=== PATIENT | female | born 1945 | race African-American/Black ===

== ENCOUNTER 2017-02-19 17:00 | Inpatient (IN) | payer MEDICARE ==
--- NOTE | ~2017-02-19 | CN ---
Consultation Report [facility] [address] [place]. [address] NAME: ROJELIO MOSQUERA : 45 STATUS : REG ER PAT#: [id number] AGE: 71 ADM/REG DATE : 02/19/17 MR#: [id number] REPORT SERV DATE: 02/19/17 DICTATED BY: DATE: REPORT STATUS : Draft TRANSCRIBED BY: MODL DATE: 02/19/17 NEUROLOGY CONSULTATION DATE OF CONSULTATION: 02/19/2017 REASON FOR CONSULT: Possible stroke. HISTORY OF PRESENT ILLNESS: This is a 71-year-old female presented to [facility] with the patient noted to have difficulty talking as well as right facial weakness with the patient noted to have transient visual loss that has subsequently resolved. The patient still was noted to have problem talking as well as facial weakness. The patient complained of bilateral lower extremity toe numbness that has been ongoing, otherwise the patient denies any focal weakness or numbness. The patient had similar symptoms in the past, roughly a year ago. Otherwise, denies any recent illness, fever, chills, nausea, vomiting, chest pain, or shortness of breath. Roughly a week ago, the patient's pen ruler operator Dr. Barbosa, discontinued the patient's spironolactone, otherwise no recent changes in medication. The patient denies any recent anticoagulation usage, specifically denies Coumadin, Eliquis, Pradaxa, and Xarelto. PAST MEDICAL HISTORY: Significant for previous Conway's palsy in 1986, diabetes, gout, hypercholesterolemia, edema, diastolic heart failure with chronic kidney disease, obesity, sleep apnea, and fatty liver. ALLERGIES: THE PATIENT REPORTS ALLERGY TO PENICILLIN WELL NONSTEROIDAL ANTI- INFLAMMATORY MEDICATION AND IBUPROFEN. MEDICATIONS: The patient at baseline, takes aspirin. REVIEW OF SYSTEMS: Negative except for those mentioned in the HPI. FAMILY HISTORY: Significant for diabetes. SOCIAL HISTORY: The patient denies tobacco, alcohol, or recreational drug usage. PHYSICAL EXAMINATION: VITAL SIGNS: At the time of evaluation, the patient was noted to have T-max of 97.9, heart rate of 92, respiration of 18, and blood pressure of 143/79. GENERAL: The patient is well developed, well nourished, in no acute distress. CARDIOVASCULAR: Regular rate and rhythm. No carotid bruits were otherwise auscultated. PULMONARY: Clear to auscultation bilaterally. NEUROLOGICAL: Generally, the patient is alert, oriented to person, place, year, and month. The patient is able to follow simple and 2-step commands. No aphasia was otherwise appreciated. Dysarthria was noted. The patient was able to follow simple and 2-step Consultation Report [facility] [address] [place]. [address] NAME: ROJELIO MOSQUERA : 45 STATUS : REG ER PAT#: [id number] AGE: 71 ADM/REG DATE : 02/19/17 MR#: [id number] REPORT SERV DATE: 02/19/17 DICTATED BY: DATE: REPORT STATUS : Draft TRANSCRIBED BY: MODL DATE: 02/19/17 commands. Intact registration, some difficulty with recall. Cranial nerves 2 through 12, pupils equal, round, and reactive to light. Horizontal eye movement was noted to be intact with intact peripheral vision. The patient was noted to have decreased nasolabial fold on the right compared to the left with the patient noted to have roughly equal eye closure bilaterally. The patient otherwise reports symmetrical sensation in bilateral face, midline tongue, normal palatal movement. Apparent normal hearing. The patient demonstrated 5/5 bilateral upper and lower extremity strength with the patient reporting symmetrical sensation bilaterally. Deep tendon reflex was otherwise 2+ throughout. Downgoing toe on bilateral plantar reflexes. Normal yspujw-fy-owju examination without ataxia. Gait was not evaluated secondary to the patient's acute symptoms. LABORATORY STUDIES: Demonstrated white blood cell count of 8.9, hemoglobin of 12.9, hematocrit of 41.9, platelet count of 180. The patient was noted to have CT scan of the brain, demonstrated no acute process. CT angiogram was not obtained secondary to patient's creatinine of 2.0 and mild symptoms. IMPRESSION: Right facial weakness, symptom onset of 1500 hours. Transient visual loss, that has subsequently resolved, but still noted with dysarthria as well as weakness in the right face. NIH stroke scale of 2. tPA was administered after discussion with the family member regarding risks and benefit, the patient's baseline is 1705 hours. We will admit the patient to ICU for stroke workup. Unfortunately, CT angiogram of the head and neck was not obtained secondary to the patient's creatinine of 2.0 and mild symptoms. RECOMMENDATION: 1. ICU admission. 2. MRI of the head without contrast. 3. MRA of the head and neck. 4. Echocardiogram. 5. Lipitor 80 mg p.o. at bedtime. 6. Fasting lipid panel and hemoglobin A1c. 7. PT/OT, speech therapy, evaluation and treatment. [facility]/MODL Efe Avery MD / [id number] CC: Panfilo Bernal M.D.
--- NOTE | ~2017-02-19 | DS ---
Discharge Summary [facility] [address] [place]. [address] NAME: ROJELIO MOSQUERA : 45 STATUS : DIS IN PAT#: [id number] AGE: 71 ADM/REG DATE : 02/19/17 MR#: [id number] REPORT SERV DATE: 02/23/17 DICTATED BY: BRIJESH CASTANO DATE: 02/22/17 REPORT STATUS : Draft TRANSCRIBED BY: MODL DATE: 02/22/17 ADMISSION DATE: 02/19/2017 DISCHARGE DATE: 02/22/2017 FINAL DIAGNOSES: 1. Transient ischemic attack versus cerebrovascular accident, status post tPA. 2. Diabetes. 3. Chronic diastolic congestive heart failure. 4. Sxyu-dj-xiunjpnl mitral regurgitation. 5. Chronic kidney disease 3 to 4. 6. Obesity. DIAGNOSTIC EXAM: Echocardiogram showing left ventricular systolic function intact to 57%, mild left ventricular diastolic dysfunction, right ventricle systolic function intact, mild mitral regurgitation unchanged. CAT scan of the brain showing unremarkable noncontrast head CT. Mild age-appropriate diffuse cerebral involutional changes, no acute intracranial hemorrhage, no acute CVA identified. Chest x-ray, normal chest. MRI of the brain, mild to moderate amount of old deep white matter ischemic change. No acute infarction or bleed. Mild to moderate atrophy present. MRA of the head, normal findings. MRA of the neck. Maximum intensity projection. Image demonstrate no significant stenosis of the carotid arteries. Category 1 by NASCET criteria. Vertebrals are codominant, symmetric, and intact. HOSPITAL COURSE: Please refer to the H and P done by Dr. Martell dated on 02/19/2017. Briefly, this is a 71-year-old female, who comes in for dysphagia, increased right facial weakness, and transient vision loss. The patient has been seen by Neurology in the emergency room and it was deemed that the patient needed tPA. The patient was then admitted to the critical care unit and she did well. The next day, she was back to her baseline and was transferred out to the floor. The patient continued to do well and Neurology signed off. The patient will now be discharged with the above diagnosis. She will be on the following medications. Aspirin 325 mg once a day, Lipitor 80 mg at bedtime, NovoLog 24 units three times a day, Levemir 100 units at bedtime, torsemide 20 mg a day, Micardis 80 mg a day, potassium 20 mEq a day, Norvasc 5 mg a day. The patient will follow up with Dr. Panfilo Bernal in one to two weeks. I would defer to him on the management of her insulin. Her hemoglobin A1c is 7.3 at those doses. However, when she was here, with the erratic food intake, we were only able to keep her sugar well with only 20 units of Levemir, but I would defer this to her PCP, Dr. Bernal. This has been explained to her in front of the . They agreed and understood the plan. Discharge Summary [address] [place]. [address] NAME: ROJELIO MOSQUERA : 45 STATUS : DIS IN PAT#: [id number] AGE: 71 ADM/REG DATE : 02/19/17 MR#: [id number] REPORT SERV DATE: 02/23/17 DICTATED BY: BRIJESH CASTANO DATE: 02/22/17 REPORT STATUS : Draft TRANSCRIBED BY: TREVOR DATE: 02/22/17 TIME SPENT: 35 minutes. DICTATED BY: Freddy Gordon/TREVOR Brijesh Castano M.D. / [id number] CC: DO Panfilo Machado M.D.
--- NOTE | ~2017-02-19 | HP ---
History And Physical [address] [address] NAME: ROJELIO MOSQUERA : 45 STATUS : ADM IN [facility]#: [id number] AGE: 71 ADM/REG DATE : 02/19/17 MR#: [id number] REPORT SERV DATE: 02/19/17 DICTATED BY: LUIS MARTELL DATE: 02/19/17 REPORT STATUS : Draft TRANSCRIBED BY: TREVOR DATE: 02/19/17 DATE OF ADMISSION: 02/19/2017 HISTORY OF PRESENT ILLNESS: This is a 71-year-old, black female, who presents with dysphagia, right facial weakness, and transient vision loss. The patient was brought to the emergency room. She was evaluated by Neurology, Dr. Patricia Avery. She also was noted to have bilateral lower extremity toe numbness. The patient was evaluated and given tPA as per protocol, infusion of tPA completed at 1805 hours. She is currently in the CCU as per post tPA CVA protocol. We are asked to admit her. For this reason, we are asked to admit her. ALLERGIES: SHE IS ALLERGIC TO PENICILLIN, TO WHICH SHE GETS SWELLING AND A RASH. IBUPROFEN, SWELLING AND RASH AND IS ALSO HAVE HAS HAD ISSUES WITH OTHER NONSTEROIDAL ANTIINFLAMMATORY. SHE TOLERATES ASPIRIN WELL. HOME MEDICATION: Aspirin 81 mg daily; subcu insulin 24 units three times a day; Levemir 100 units subcu at bedtime; torsemide dose unknown, she takes one tablet daily; Telmisartan one tablet daily; potassium one tablet daily, dose unknown. PAST MEDICAL HISTORY: 1. Significant for Conway's palsy in 1986. 2. Diabetes mellitus. 3. Gout. 4. Hypercholesterolemia. 5. Edema. 6. Diastolic heart failure. 7. Chronic kidney disease. 8. Obesity. 9. Sleep apnea. 10.Fatty liver. 11.Status post hysterectomy. 12.Previous echocardiogram in 11/2013, showed a normal left ventricular systolic function with an estimated ejection fraction of 65%, mild diastolic dysfunction and mild-to- moderate mitral regurgitation. 13.The patient was evaluated for possible stroke in 12/2013, and was seen by Neurology then, Dr. Morton. It was felt at that time that the patient indeed have had a CVA, likely small vessel. There was no residual deficit. It was felt that the patient did not need to have rehabilitation services. Aspirin was started and Lipitor was increased to 80 mg. She had an echocardiogram at that time to show normal left ventricular systolic function and no change from her previous echocardiogram in 11/2013. She was eventually discharged. She now presents with the above-mentioned complaints. FAMILY HISTORY: Both parents are . Her mom had diabetes mellitus as did her dad. SOCIAL HISTORY: She is . Lives at home with her . She has four daughters. She has a remote history of smoking and smoked less than a pack a day for about 15 years and History And Physical [address] [address] NAME: ROJELIO MOSQUERA : 45 STATUS : ADM IN [facility]#: [id number] AGE: 71 ADM/REG DATE : 02/19/17 MR#: [id number] REPORT SERV DATE: 02/19/17 DICTATED BY: LUIS MARTELL DATE: 02/19/17 REPORT STATUS : Draft TRANSCRIBED BY: TREVOR DATE: 02/19/17 quit over 10 years ago. Has an occasional alcoholic beverage and does not use illicit drugs. REVIEW OF SYSTEMS: The patient denies any difficulties with weight loss, weight gain, diarrhea, constipation, productive cough, nausea, vomiting, fever, or chills. There is a mention that the patient has obstructive sleep apnea, but she herself is not aware of this. So, this part of her history is not entirely certain. She has chronic lower extremity edema and takes Demadex for that. The remainder of a 12-point review of systems is unremarkable. PHYSICAL EXAMINATION: GENERAL: The patient is alert, awake, and oriented. She is in no distress. VITAL SIGNS: Her heart rate is 84, blood pressure is 172/81, O2 saturation on room air is 97%. Her respiratory rate is 20, temperature is 98.4. The patient is alert and awake, following commands, still has residual right facial droop but some of this may be chronic secondary to her history of Conway's palsy. She otherwise is able to speak and feels that she is better. She denies any weakness in any of her extremities. SKIN: Warm and dry. HEENT: Head is atraumatic and normocephalic. Pupils are sluggishly reactive. Sclerae anicteric. Conjunctivae are pink. Nasal mucosa is within normal limits. Oral mucosa is moist. Tongue is midline. NECK: Supple without JVD, lymphadenopathy, or thyromegaly. LUNG: Without wheezing, diminished at the bases. CARDIAC: Reveals a regular rate and rhythm with no significant murmurs heard. BREASTS: Symmetrical without masses. ABDOMEN: Obese, nondistended. Bowel sounds are present. There is no organosplenomegaly appreciated. RECTAL/GENITAL: Deferred. EXTREMITIES: Without cyanosis, clubbing, but there is bilateral lower extremity edema. The patient apparently had taken her Demadex this morning. NEUROLOGIC: With the exception of the right facial droop is nonfocal. IMAGING: EKG showed sinus rhythm with 1st degree AV block. Head scan was done without contrast because of the patient's creatinine being 1.99, white cell count is 8.9, hemoglobin 12, hematocrit 41, platelet count is an 181,000. No left shift. PTT and PT/INR within normal limits. Sodium is 146, potassium is 3.7, chloride is 110, bicarb is 30, BUN is 31, creatinine 1.99, glucose 63, troponin is less than 0.02. LFTs are within normal limits. ASSESSMENT AND PLAN: This is a 71-year-old patient with known history of Conway's palsy, who presents with right facial weakness, symptom onset at 1500 hours, also transient visual loss and aphasia associated with dysarthria and weakness of the right face, some of which seems to have resolved. So, she will be kept under observation in the intensive care unit at least for 24 hours after receiving tPA. She will also receive an MRI of the head without contrast and MRA of the head and neck. Echocardiogram with bubble study has been ordered. She will receive 80 mg of Lipitor at bedtime. Fasting lipid panel and glycosylated History And Physical [address] [address] NAME: ROJELIO MOSQUERA IFRAJ : 45 STATUS : ADM IN [facility]#: [id number] AGE: 71 ADM/REG DATE : 02/19/17 MR#: [id number] REPORT SERV DATE: 02/19/17 DICTATED BY: LUIS MARTELL DATE: 02/19/17 REPORT STATUS : Draft TRANSCRIBED BY: MODL DATE: 02/19/17 hemoglobin A1c has been ordered. PT, OT, and Speech Therapy evaluation and treatment also has been ordered. She will be on a sliding insulin scale for her diabetes mellitus. Diuretics as needed. The patient is in stable condition. /MODL Luis Martell M.D. / [id number] CC: MD Panfilo Thomas M.D.
[~2017-02-19 17:00] MED LIST: *UNABLE1; BYSTOLIC10 MG PO; CENTRUM TAB1 TAB PO; COLCRYS0.6 MG PO; DEMA20 PO; EDARBI40 MG PO; EDARBYCLOR 40-1 EAC1 PO; KDUR20 PO; LEVEMIR SC; LIPITOR20 PO; LIPITOR80 MG PO; MEDROLPAK4 PO; MULTIVIT/MIN PO; NOVOLOG SC; NOVOPEN SC; OCEAN NAS; PROMEGA PO; PROTONIX PO; SPIRO25 PO; SPIRONOLACTONE PO; TEARS NATURA OP; Z100 PO; [UNRECOGNIZED DRUG - CODE] IM
[2017-02-19 17:14] LABS: BASOPHILS 0.4 %; BASOPHILS ABSOLUTE 0.04 10/3/uL (0.0-0.16); EOSINOPHILS 2.2 %; ER CBC TAT 0 Hrs 05 Mins; HEMATOCRIT 41.9 % (36.0-48.0); HEMOGLOBIN 12.9 g/dL (12.0-16.0); IMMATURE GRANULOCYTES 0.2 %; IMMATURE GRANULOCYTES ABSOLUTE 0.02 10/3/uL (0.0-0.11); LYMPHOCYTES 34.8 %; MEAN CORPUS HGB CONC 30.8 g/dL (32.0-36.0); MEAN CORPUSCULAR HEMOGLOB 28.2 pg (26.0-34.0); MEAN CORPUSCULAR VOLUME 91.7 fL (80-100); MEAN PLATELET VOLUME 10.1 fL (9.2-13.0); MONOCYTES 8.1 %; MONOCYTES ABSOLUTE 0.72 10/3/uL (0.21-1.20); NEUTROPHILS 54.3 %; NEUTROPHILS ABSOLUTE 4.82 10/3/uL (2.02-8.40); PLATELET COUNT 180 10/3/uL (150-400); RBC DISTRIBUTION WIDTH 15.9 % (12.0-16.0); RED CELL COUNT 4.57 10/6/uL (4.0-5.6); WHITE BLOOD CELLS 8.9 10/3/uL (4.5-10.5)
[2017-02-19 17:15] LABS: MANUAL DIFF NO %
[2017-02-19 17:20] LABS: INTERNATIONAL NORMAL RATI 1.2 UNITS (-); PROTIME (NOT ORD) 14.7 SEC (12.0-14.5)
[2017-02-19 17:21] LABS: PARTIAL THROMBO TIME 31.4 SEC (22.5-37.2)
[2017-02-19] MEDS ORDERED: ASABAYER PO (17:22)
[2017-02-19] MEDS ORDERED: DEMA20 PO (17:23)
[2017-02-19] MEDS ORDERED: KLOR-CON M2020 MEQ PO (17:23)
[2017-02-19] MEDS ORDERED: MICARDIS80 PO (17:23)
[2017-02-19] MEDS ORDERED: NOVOLOG SC (17:24)
[2017-02-19] MEDS ORDERED: *UNABLE1 (17:24)
[2017-02-19] MEDS ORDERED: LEVEMIR SC (17:24)
[2017-02-19 17:31] LABS: A/G RATIO 0.8 (0.7-1.9); ALBUMIN 3.7 G/DL (3.5-5.0); ALKALINE PHOSPHATASE 77 U/L (45-117); BUN (BLOOD UREA NITROGEN) 31 MG/DL (6-23); CALCIUM, SERUM 9.3 MG/DL (8.5-10.4); CHLORIDE, SERUM 112 MMOL/L (96-112); CO2 (CARBON DIOXIDE) 30 MMOL/L (24-34); CREATININE 1.99 MG/DL (0.55-1.02); GFR AFRICAN AMERICAN 29 ML/MIN (>=60); GFR NON AFRICAN AMERICAN 25 ML/MIN (>=60); GLOBULIN 4.4 G/DL (2.5-4.1); GLUCOSE, SERUM 63 MG/DL (60-99); POTASSIUM, SERUM 3.7 MMOL/L (3.5-5.3); SGOT(AST) 20 U/L (5-40); SGPT(ALT) 23 U/L (5-65); SODIUM, SERUM 146 MMOL/L (135-148); TOTAL BILIRUBIN 0.3 MG/DL (0-1.2); TOTAL PROTEIN 8.1 G/DL (6.0-8.5); TROPONIN I <0.02 NG/ML (<0.05)
[2017-02-19 23:43] LABS: ASCORBIC ACID (UR NOT ORDER) NEG (NEG); BILIRUBIN, URINE NEGATIVE (NEG); KETONE, URINE NEGATIVE (NEG); LEUKOCYTE ESTERASE(NOT OR NEG (NEG); WBC (NOT ORDERED) (RFLEX) < 1 (0-5)
[2017-02-19 23:54] LABS: CHOL/HDL RATIO(NOT ORDER) 2.8 (0-5); CHOLESTEROL 117 MG/DL (< 200); CPK (IF ELEVATED MB BANDS) 208 U/L (0-200); HDL CHOLESTEROL 42 MG/DL (> 49); LDL CHOLESTEROL 52 MG/DL (< 130); NON-HDL CHOLESTEROL 75 MG/DL (< 160); TRIGLYCERIDE 117 MG/DL (< 150); TROPONIN I <0.02 NG/ML (<0.05)
[2017-02-19 23:55] LABS: FOLATE 32.2 NG/ML (>5.2)
[2017-02-20 08:06] LABS: BASOPHILS 0.4 %; BASOPHILS ABSOLUTE 0.03 10/3/uL (0.0-0.16); EOSINOPHILS 3.1 %; EOSINOPHILS ABSOLUTE 0.21 10/3/uL (0.0-0.53); HEMATOCRIT 38.7 % (36.0-48.0); HEMOGLOBIN 11.9 g/dL (12.0-16.0); IMMATURE GRANULOCYTES 0.1 %; IMMATURE GRANULOCYTES ABSOLUTE 0.01 10/3/uL (0.0-0.11); LYMPHOCYTES 34.4 %; LYMPHOCYTES ABSOLUTE 2.35 10/3/uL (0.67-4.30); MANUAL DIFF NO %; MEAN CORPUS HGB CONC 30.7 g/dL (32.0-36.0); MEAN CORPUSCULAR HEMOGLOB 28.3 pg (26.0-34.0); MEAN CORPUSCULAR VOLUME 92.1 fL (80-100); MEAN PLATELET VOLUME 9.8 fL (9.2-13.0); MONOCYTES 8.5 %; MONOCYTES ABSOLUTE 0.58 10/3/uL (0.21-1.20); NEUTROPHILS 53.5 %; NEUTROPHILS ABSOLUTE 3.65 10/3/uL (2.02-8.40); PLATELET COUNT 160 10/3/uL (150-400); RBC DISTRIBUTION WIDTH 15.8 % (12.0-16.0); WHITE BLOOD CELLS 6.8 10/3/uL (4.5-10.5)
[2017-02-20 08:23] LABS: BUN (BLOOD UREA NITROGEN) 26 MG/DL (6-23); CALCIUM, SERUM 9.1 MG/DL (8.5-10.4); CHLORIDE, SERUM 111 MMOL/L (96-112); CO2 (CARBON DIOXIDE) 27 MMOL/L (24-34); CPK (IF ELEVATED MB BANDS) 195 U/L (0-200); CREATININE 1.66 MG/DL (0.55-1.02); GFR AFRICAN AMERICAN 36 ML/MIN (>=60); GFR NON AFRICAN AMERICAN 31 ML/MIN (>=60); POTASSIUM, SERUM 4.1 MMOL/L (3.5-5.3); SODIUM, SERUM 143 MMOL/L (135-148); TROPONIN I 0.03 NG/ML (<0.05)
[2017-02-20 08:24] LABS: GLUCOSE, SERUM 172 MG/DL (60-99)
[2017-02-20] MEDS ORDERED: NORV5 PO (10:20)
[2017-02-20 12:40] LABS: GLYCOHEMOGLOBIN (HbA1c) 7.3 % (4.7-6.1)
[2017-02-20 14:53] LABS: CPK (IF ELEVATED MB BANDS) 192 U/L (0-200); TROPONIN I <0.02 NG/ML (<0.05)
[2017-02-21 04:56] LABS: BASOPHILS 0.3 %; BASOPHILS ABSOLUTE 0.02 10/3/uL (0.0-0.16); EOSINOPHILS 2.6 %; EOSINOPHILS ABSOLUTE 0.17 10/3/uL (0.0-0.53); HEMATOCRIT 39.7 % (36.0-48.0); HEMOGLOBIN 12.1 g/dL (12.0-16.0); IMMATURE GRANULOCYTES 0.2 %; IMMATURE GRANULOCYTES ABSOLUTE 0.01 10/3/uL (0.0-0.11); LYMPHOCYTES 29.8 %; LYMPHOCYTES ABSOLUTE 1.98 10/3/uL (0.67-4.30); MEAN CORPUS HGB CONC 30.5 g/dL (32.0-36.0); MEAN CORPUSCULAR HEMOGLOB 27.9 pg (26.0-34.0); MEAN CORPUSCULAR VOLUME 91.5 fL (80-100); MEAN PLATELET VOLUME 10.2 fL (9.2-13.0); MONOCYTES 8.1 %; MONOCYTES ABSOLUTE 0.54 10/3/uL (0.21-1.20); NEUTROPHILS ABSOLUTE 3.93 10/3/uL (2.02-8.40); PLATELET COUNT 165 10/3/uL (150-400); RBC DISTRIBUTION WIDTH 15.3 % (12.0-16.0); RED CELL COUNT 4.34 10/6/uL (4.0-5.6); WHITE BLOOD CELLS 6.7 10/3/uL (4.5-10.5)
[2017-02-21 04:59] LABS: MANUAL DIFF NO %
[2017-02-21 05:06] LABS: CALCIUM, SERUM 8.7 MG/DL (8.5-10.4); CHLORIDE, SERUM 108 MMOL/L (96-112); CO2 (CARBON DIOXIDE) 29 MMOL/L (24-34); CREATININE 1.57 MG/DL (0.55-1.02); GFR AFRICAN AMERICAN 38 ML/MIN (>=60); GFR NON AFRICAN AMERICAN 33 ML/MIN (>=60); GLUCOSE, SERUM 179 MG/DL (60-99); POTASSIUM, SERUM 4.3 MMOL/L (3.5-5.3); SODIUM, SERUM 142 MMOL/L (135-148)
[2017-02-21 05:07] LABS: BUN (BLOOD UREA NITROGEN) 22 MG/DL (6-23)
[2017-02-21 21:39] LABS: CPK (IF ELEVATED MB BANDS) 180 U/L (0-200); TROPONIN I <0.02 NG/ML (<0.05)
[2017-02-22 05:51] LABS: ALKALINE PHOSPHATASE 71 U/L (45-117); SGOT(AST) 25 U/L (5-40); SGPT(ALT) 16 U/L (5-65); TOTAL BILIRUBIN 0.4 MG/DL (0-1.2); TOTAL PROTEIN 6.9 G/DL (6.0-8.5)
[2017-02-22 05:52] LABS: DIRECT BILIRUBIN < 0.1 MG/DL (0.0-0.4); INDIRECT BILIRUBIN(NOT ORDER) 0.3 MG/DL (0.1-0.9)
[2017-02-22] MEDS ORDERED: LIPITOR80 MG PO (14:38)
[2017-04-20] MEDS ORDERED: ACET500CAP PO (09:57)
[2017-04-20] MEDS ORDERED: Z100 PO (10:08)
[2017-04-20] MEDS ORDERED: NOVOPEN SC (10:09)
[2017-04-20] MEDS ORDERED: LEVEMFLXPN SC (10:09)
== END 2017-02-22 15:30 | disposition home or self-care (01) | DRG 62 ==
LOC: ER 17:00 → CCU 19:46 → 1SO 02-21 06:49
PROVIDERS: Emergency Medicine; Internal Medicine; Internal Medicine Critical Care Medicine
DX: I63.9 Cerebral infarction, unspecified (principal); N17.9 Acute kidney failure, unspecified; I50.32 Chronic diastolic (congestive) heart failure; G81.91 Hemiplegia, unspecified affecting right dominant side; Z68.42 Body mass index [BMI] 45.0-49.9, adult; H53.129 Transient visual loss, unspecified eye; E11.22 Type 2 diabetes mellitus with diabetic chronic kidney disease; R47.01 Aphasia; R29.702 NIHSS score 2; N18.3 Chronic kidney disease, stage 3 (moderate); K76.0 Fatty (change of) liver, not elsewhere classified; I44.0 Atrioventricular block, first degree; I34.0 Nonrheumatic mitral (valve) insufficiency; G51.0 Bell's palsy; R29.810 Facial weakness; R47.1 Dysarthria and anarthria; E66.9 Obesity, unspecified; Z79.4 Long term (current) use of insulin; Z79.82 Long term (current) use of aspirin; Z79.899 Other long term (current) drug therapy; Z87.891 Personal history of nicotine dependence; Z88.0 Allergy status to penicillin; Z88.6 Allergy status to analgesic agent; Z88.8 Allergy status to other drugs, medicaments and biological substances
CPT/HCPCS: 36415; 70450; 70544; 70547; 70551-52; 71010; 80048; 80053; 80061; 80076; 81001; 82140; 82550; 82553; 82607; 82746; 82962; 83036; 83735; 84100; 84443; 84484; 85025; 85610; 85730; 86850; 86900; 86901; 87641; 92523-GN; 93005; 93306; 96365; 97165-GO; 99285; A9270-GY; G8987-CH-GO; G8988-CH-GO; G8989-CH-GO; G9162-CJ-GN; G9163-CJ-GN; G9164-CJ-GN; J2997

== ENCOUNTER 2017-03-11 12:59 | Emergency (ER) | payer MEDICARE ==
[2017-03-11 12:13] LABS: BASOPHILS 0.3 %; BASOPHILS ABSOLUTE 0.02 10/3/uL (0.0-0.16); EOSINOPHILS 2.9 %; EOSINOPHILS ABSOLUTE 0.22 10/3/uL (0.0-0.53); ER CBC TAT 0 Hrs 10 Mins; HEMATOCRIT 40.7 % (36.0-48.0); HEMOGLOBIN 12.3 g/dL (12.0-16.0); IMMATURE GRANULOCYTES 0.3 %; IMMATURE GRANULOCYTES ABSOLUTE 0.02 10/3/uL (0.0-0.11); LYMPHOCYTES 29.3 %; MANUAL DIFF NO %; MEAN CORPUS HGB CONC 30.2 g/dL (32.0-36.0); MEAN CORPUSCULAR HEMOGLOB 27.6 pg (26.0-34.0); MEAN CORPUSCULAR VOLUME 91.3 fL (80-100); MEAN PLATELET VOLUME 10.2 fL (9.2-13.0); MONOCYTES 6.8 %; MONOCYTES ABSOLUTE 0.51 10/3/uL (0.21-1.20); NEUTROPHILS 60.4 %; NEUTROPHILS ABSOLUTE 4.54 10/3/uL (2.02-8.40); PLATELET COUNT 169 10/3/uL (150-400); RBC DISTRIBUTION WIDTH 15.4 % (12.0-16.0); RED CELL COUNT 4.46 10/6/uL (4.0-5.6); WHITE BLOOD CELLS 7.5 10/3/uL (4.5-10.5)
[2017-03-11 12:25] LABS: CALCIUM, SERUM 9.1 MG/DL (8.5-10.4); CHLORIDE, SERUM 111 MMOL/L (96-112); CO2 (CARBON DIOXIDE) 27 MMOL/L (24-34); GFR AFRICAN AMERICAN 37 ML/MIN (>=60); GFR NON AFRICAN AMERICAN 32 ML/MIN (>=60); GLUCOSE, SERUM 106 MG/DL (60-99); POTASSIUM, SERUM 3.8 MMOL/L (3.5-5.3); SODIUM, SERUM 145 MMOL/L (135-148)
[2017-03-11 12:26] LABS: BUN (BLOOD UREA NITROGEN) 19 MG/DL (6-23)
[2017-03-11 12:49] LABS: SED RATE 25 MM/HR (0-20)
[~2017-03-11 12:59] MED LIST changes: +ASABAYER PO; +KLOR-CON M2020 MEQ PO; +MICARDIS80 PO; +NORV5 PO
[2017-04-20] MEDS ORDERED: ACET500CAP PO (09:57)
[2017-04-20] MEDS ORDERED: Z100 PO (10:08)
[2017-04-20] MEDS ORDERED: NOVOPEN SC (10:09)
[2017-04-20] MEDS ORDERED: LEVEMFLXPN SC (10:09)
== END 2017-03-11 15:05 | disposition home or self-care (01) ==
LOC: ER 12:59
PROVIDERS: Emergency Medicine
DX: M25.571 Pain in right ankle and joints of right foot (principal); I50.9 Heart failure, unspecified; N18.9 Chronic kidney disease, unspecified; E11.9 Type 2 diabetes mellitus without complications; M10.9 Gout, unspecified; G47.30 Sleep apnea, unspecified; Z86.73 Personal history of transient ischemic attack (TIA), and cerebral infarction without residual deficits; Z87.891 Personal history of nicotine dependence; Z88.0 Allergy status to penicillin; Z88.6 Allergy status to analgesic agent; Z79.82 Long term (current) use of aspirin; Z79.84 Long term (current) use of oral hypoglycemic drugs; Z79.899 Other long term (current) drug therapy
CPT/HCPCS: 73630-RT; 80048; 84550; 85025; 85652; 93005; 93971; 99284; A9270-GY